=== PATIENT | male | born 1985 | race Caucasian/White ===

== ENCOUNTER 2016-04-25 13:43 | Emergency (ER) | payer OTHER ==
[~2016-04-25] VITALS: Ht 182.9 cm; Wt 86.2 kg
[2016-04-25] MEDS ORDERED: FIORCAP3 PO (14:13)
[2016-04-25] MEDS ORDERED: SERO200T PO (14:13)
[2016-04-25] MEDS ORDERED: METOCLOPRAMIDE 10 MG TAB PO ONE (15:15)
[2016-04-25] MEDS ORDERED: KETOROLAC TROMETHAMINE 10 MG TAB PO ONE (15:15)
[2016-04-25 15:34] VITALS: BP 146/90
== END 2016-04-25 15:36 | disposition home or self-care (01) ==
LOC: M ED 15:35
DX: G43.909 Migraine, unspecified, not intractable, without status migrainosus (principal); Z88.8 Allergy status to other drugs, medicaments and biological substances; Z79.899 Other long term (current) drug therapy; F17.210 Nicotine dependence, cigarettes, uncomplicated

== ENCOUNTER 2016-07-11 11:43 | Emergency (ER) | payer OTHER ==
[~2016-07-11] VITALS: Ht 182.9 cm; Wt 95.7 kg
[~2016-07-11 11:43] MED LIST: FIORCAP3 PO; SERO200T PO
[2016-07-11] MEDS ORDERED: PRAZ1CAP (11:51)
[2016-07-11] MEDS ORDERED: ASPIRIN 81 MG CHEW TABLET PO ONE (12:00)
[2016-07-11 12:23] LABS: BASO % 0.2 % (0.0-1.0); EOS # 0.3 K/mm3 (0.0-0.50); EOS % 3.4 % (0.0-3.0); LARGE UNSTAINED CELL # 0.1 K/mm3 (0.0-0.4); LARGE UNSTAINED CELL % 1.2 % (0.0-4.0); LYMPH # 1.6 K/mm3 (1.5-4.5); LYMPH % 21.1 % (24.0-44.0); MEAN CORPUSCULAR HGB CONC 33.7 g/dl (32.0-36.5); MEAN CORPUSCULAR VOLUME 94.8 fl (80.0-96.0); MONO # 0.4 K/mm3 (0.0-0.8); MONO % 5.4 % (0.0-5.0); NEUTROPHILS # 5.2 K/mm3 (1.8-7.7); NEUTROPHILS % 68.6 % (36.0-66.0); PLATELET COUNT, AUTOMATED 223 k/mm3 (150-450); RED CELL DISTRIBUTION WIDTH 12.7 % (11.5-14.5); WHITE BLOOD COUNT 7.6 K/mm3 (4.0-10.0)
[2016-07-11 12:43] LABS: BLOOD UREA NITROGEN 14 MG/DL (7-18); CALCIUM LEVEL 8.7 MG/DL (8.5-10.1); CHLORIDE LEVEL 108 MEQ/L (98-107); CREATININE FOR GFR 1.15 MG/DL (0.70-1.30); GLUCOSE, FASTING 103 MG/DL (70-105); POTASSIUM SERUM 3.8 MEQ/L (3.5-5.1); SODIUM LEVEL 143 MEQ/L (136-145)
[2016-07-11] MEDS ORDERED: NS 1,000 ML IV ONE (13:30)
[2016-07-11 14:01] LABS: AST/SGOT 92 U/L (15-37); BILIRUBIN,TOTAL 0.3 MG/DL (0.2-1.0); TOTAL PROTEIN 6.8 GM/DL (6.4-8.2)
[2016-07-11] MEDS ORDERED: ISOVUE-370 76% 100ML VIAL (Q9967) As Ordered ONE (14:03)
[2016-07-11 14:21] LABS: ALKALINE PHOSPHATASE 62 U/L (45-117); ALT/SGPT 77 U/L (12-78); BILIRUBIN,DIRECT < 0.1 MG/DL (0.0-0.2)
[2016-07-11 14:35] LABS: METHADONE URINE NEGATIVE (NEGATIVE)
--- NOTE | 2016-07-11 14:39 | REP ---
Clinical: Left lower extremity pain and swelling . Technique: Ortiz scale and color Doppler evaluation using linear high frequency transducer. Findings: Ultrasound examination of the left lower extremity deep venous structures from the common femoral vein to the popliteal vein demonstrates normal compressibility flow and wave patterns in response to respiration and augmentation. There is no evidence for deep venous thrombosis. 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 Impression: No evidence for deep venous thrombosis. Signed by Bruce Collins MD 07/11/2016 02:31 P
--- NOTE | 2016-07-11 15:04 | REP ---
CT ANGIOGRAM OF THE CHEST: 07/11/2016. Clinical history: Chest pain, dyspnea. Evaluate for pulmonary embolism. Technique: The patient received a bolus of Isovue 370, [address] pulmonary angiogram protocol with thick slab MIP coronal and sagittal reconstructions. Comparison: PCXR this date. Findings: The lung abdullahi are well inflated. There is some minor dependent atelectatic changes posteriorly mid and lower lung zones and along major fissures, but no effusion, atelectatic change with consolidation, infiltrate, mass, nodule, calcified or noncalcified pleural plaque or other acute lung finding. No pneumothorax or pneumomediastinum. No apical scarring. Heart not enlarged. There is no pericardial thickening or effusion. The main, right, left, lobar, segmental and subsegmental pulmonary arteries as visualized are without focal lesion to suggest thrombus or vessel cutoff. No aortic aneurysm or dissection. There is no axillary or supraclavicular mass or pathologic sized mediastinal/hilar adenopathy. Bone windows show lumbar vertebral body at L1 and the thoracic levels, lower cervical spine, visualized ribs all intact. Sternum and manubrium, medial clavicles, left AC joint, scapulae, shoulder joints and humeral heads all unremarkable. In the upper abdomen, adrenal glands are seen and unremarkable. Upper poles kidneys intact. No definite hiatal hernia. Visualized portion of the liver and spleen intact. Impression: 1. No CT evidence consistent with pulmonary thromboembolism. 2. No infiltrate, effusion, atelectasis or mass. No pulmonary nodules or pneumothorax. No pleural effusion. 3. No pericardial thickening, effusion or cardiomegaly. 4. No acute bony finding. Upper abdominal structures unremarkable. Signed by Martin Schwartz MD 07/11/2016 05:24 P
[2016-07-11 15:57] VITALS: BP 116/68
[2016-07-11 19:23] LABS: ALBUMIN 3.5 GM/DL (3.2-5.2); ALBUMIN/GLOBULIN RATIO 1.06 (1.00-1.93); ANION GAP 8 MEQ/L (8-16); CARBON DIOXIDE LEVEL 27 MEQ/L (21-32)
--- NOTE | 2016-07-12 08:24 | ECGEPIP ---
Stationary ECG Study [facility] - ED Test Date: 2016-07-11 Pat Name: ROSALIO CRAIN Department: Room: - Gender: M [employer]: jeremiah : 1985 Requested By: TED Liriano Order Number: [id number] Reading MD: Leesa Cardenas Measurements Intervals [place] Rate: 76 P: 56 IN: 156 QRS: 14 QRSD: 98 T: 21 QT: 365 QTc: 413 Interpretive Statements SINUS RHYTHM SIMILAR 09/28/15 Electronically Signed On 07-12-2016 8:24:09 EDT by Leesa Cardenas
== END 2016-07-11 16:00 | disposition home or self-care (01) ==
LOC: M ED 14:03
DX: M79.89 Other specified soft tissue disorders (principal); R07.9 Chest pain, unspecified; Z87.891 Personal history of nicotine dependence; Z79.82 Long term (current) use of aspirin; Z79.899 Other long term (current) drug therapy; Z88.8 Allergy status to other drugs, medicaments and biological substances
CPT/HCPCS: 36415; 71010; 71275; 80048; 80076; 80306; 81002; 82550; 82553; 83880; 85025; 85379; 93005; 93041; 93971; 94760; 99285; Q9967